=== PATIENT | female | born 1945 | race Caucasian/White ===

== ENCOUNTER 2016-07-01 14:17 | Outpatient (CLI) | payer MEDICARE, OTHER | END 2016-07-01 23:59 | DX: E87.5 Hyperkalemia (principal); E11.9 Type 2 diabetes mellitus without complications ==

== ENCOUNTER 2016-07-06 19:29 | Outpatient (CLI) | payer MEDICARE, OTHER | END 2016-07-06 19:30 | disposition home or self-care (01) | DX: E87.5 Hyperkalemia (principal) ==

== ENCOUNTER 2016-07-26 11:15 | Outpatient (CLI) | payer MEDICARE, OTHER | END 2016-07-26 11:16 | disposition home or self-care (01) | DX: L03.116 Cellulitis of left lower limb (principal) ==

== ENCOUNTER 2016-08-02 16:41 | Outpatient (CLI) | payer MEDICARE, OTHER | END 2016-08-02 16:42 | disposition home or self-care (01) | DX: L03.116 Cellulitis of left lower limb (principal) ==

== ENCOUNTER 2016-08-03 05:28 | Outpatient (CLI) | payer MEDICARE, OTHER | END 2016-08-03 05:29 | disposition E | LOC: EMS 05:28 | PROVIDERS: ATTEND Surgery | CPT/HCPCS: A0425; A0429 ==